=== PATIENT | female | born 1990 ===

== ENCOUNTER 2020-11-05 13:18 | Inpatient (IN) | payer OTHER ==
[~2020-11-05] VITALS: Wt 82.2 kg
[2020-11-05] MEDS ORDERED: NORVASC 5MG5 MG/TAB PO (15:51)
[2020-11-05] MEDS ORDERED: ELIQUIS 2.5 PO (15:55)
[2020-11-05] MEDS ORDERED: LIPITOR20 MG PO (15:56)
[2020-11-05] MEDS ORDERED: LASIX 20MG TABL20 MG PO (15:56)
[2020-11-05] MEDS ORDERED: PRINIVIL40 MG PO (15:58)
[2020-11-05] MEDS ORDERED: CELLCEPT 5500 MG/TAB PO (16:00)
[2020-11-05] MEDS ORDERED: PRIL40 PO (16:01)
[2020-11-05] MEDS ORDERED: BACTRIM 400 MG-1 TAB PO (16:05)
[2020-11-05] MEDS ORDERED: PREDNISONE20 MG PO (16:07)
[2020-11-05] MEDS ORDERED: FOSAMAX 35MG35 MG PO (16:09)
--- NOTE | 2020-11-05 16:40 | NUR ---
Patient to room 354 by EMS from [facility]. Patient A&Ox4. VSS. IV CDI. Patient ambulated with standby assist to the bed from the stretcher. Patient oriented patient to location, room and call light. Reports pain in legs with movement and palpation. No further needs expressed from the patient. Call light within reach
[2020-11-05 16:49] LABS: BASO % 0.1 % (0.0-2.0); EOS # 0.1 (0.0-0.7); EOS % 0.5 % (0-4.0); GRAN # 10.5 (1.4-6.5); GRAN % 72.3 % (42.2-75.2); LYMPH # 2.9 (1.2-3.4); LYMPH % 20.1 % (20.0-51.0); MEAN CELL VOLUME 83 fl (80.0-100.0); MEAN CORPUSCULAR HGB CONC 31 g/dl (33.0-37.0); MEAN PLATELET VOLUME 9.3 fl (7.4-10.4); MONO % 6.7 % (1.7-9.3); PLATELET COUNT 215 K/mm3 (130-400); RED BLOOD COUNT 3.62 M/mm3 (4.10-5.30); REDCELL DISTRIBUTION WIDTH-CV 15.9 % (11.5-14.5)
[2020-11-05 16:51] LABS: HEMATOCRIT 29.9 % (37.0-47.0); HEMOGLOBIN 9.3 g/dl (12.5-16.0); MEAN CORPUSCULAR HEMOGLOBIN 26 pg (27.0-31.0)
[2020-11-05 17:00] LABS: ALBUMIN 2.7 gm/dL (3.5-5.0); BILIRUBIN,TOTAL 0.4 mg/dL (0.0-1.0); CALCIUM 8.5 mg/dL (8.4-10.2); CREATININE, serum 1.09 (0.52-1.25); POTASSIUM 4.3 mmol/L (3.4-5.0); TOTAL PROTEIN 5.3 gm/dL (6.4-8.2)
[2020-11-05 17:01] VITALS: BP 139/84; PULSE 103; TEMP 98.5
--- NOTE | 2020-11-05 18:21 | NUR ---
Patient sitting up in bed working on eatting dinner. Reports of pain in ear after yawning and ears popping. No pain medication requested. A&Ox4. VSS. IV CDI, fluids infusing. No further needs expressed from the patient. Call light within reach
[2020-11-05 19:17] VITALS: BP 137/76; PULSE 107; TEMP 98.7
--- NOTE | 2020-11-05 19:30 | NUR ---
RECEIVED CHANGE OF SHIFT REPORT FROM DAY SHIFT NURSE.
--- NOTE | 2020-11-05 19:57 | NUR ---
PATIENT REPORTS STILL HAS LEFT EAR PAIN, LEVEL 10/10, WITH DAISHA LEG PAIN, 6/10, THAT PATIENT STATES IS "COMING BACK". DENIES NAUSEA/CHEST PAIN/SHORTNESS OF BREATH/COUGH AT THIS TIME. DENIES NUMBNESS/TINGLING TO EXTREMITIES AT THIS TIME. STARTED 24 HOUR URINE COLLECTION AT 1910, URINE COLLECTION JUGS ON ICE PER HOSP P/P. DENIES NO OTHER NEEDS AT THIS TIME.
[2020-11-05 23:37] VITALS: BP 141/71; PULSE 105; TEMP 98.5
--- NOTE | 2020-11-06 01:29 | NUR ---
SEE eMAR FOR PAIN MED GIVEN TO RECURRENT LEFT EAR PAIN, REPORTING THAT LEFT JAW AND THROAT WITH PAIN. PATIENT AGREED TO THERMAL TX FOR COMFORT WELL FOR LEFT EAR PAIN. NO OTHER NEEDS REPORTED.
[2020-11-06 03:56] VITALS: BP 135/76; PULSE 99; TEMP 98.4
[2020-11-06 06:30] LABS: ALBUMIN 2.5 gm/dL (3.5-5.0); CALCIUM 8.1 mg/dL (8.4-10.2); CREATININE, serum 0.93 (0.52-1.25); PHOSPHOROUS 3.8 mg/dL (2.5-4.5); POTASSIUM 4.5 mmol/L (3.4-5.0)
[2020-11-06 06:55] LABS: GRAN % 77.4 % (42.2-75.2); HEMATOCRIT 26.5 % (37.0-47.0); HEMOGLOBIN 8.6 g/dl (12.5-16.0); LYMPH % 15.1 % (20.0-51.0); MEAN CELL VOLUME 83 fl (80.0-100.0); MEAN CORPUSCULAR HEMOGLOBIN 27 pg (27.0-31.0); MEAN CORPUSCULAR HGB CONC 33 g/dl (33.0-37.0); MEAN PLATELET VOLUME 9.5 fl (7.4-10.4); PLATELET COUNT 207 K/mm3 (130-400); RED BLOOD COUNT 3.19 M/mm3 (4.10-5.30)
[2020-11-06 06:56] LABS: BASO % 0.1 % (0.0-2.0); EOS # 0.1 (0.0-0.7); EOS % 0.9 % (0-4.0); GRAN # 10.8 (1.4-6.5); LYMPH # 2.1 (1.2-3.4); MONO # 0.9 (0.1-0.6); MONO % 6.2 % (1.7-9.3)
--- NOTE | 2020-11-06 07:05 | NUR ---
CHANGE OF SHIFT REPORT GIVEN TO DAY SHIFT NURSEALMA RN
[2020-11-06 08:31] VITALS: BP 133/77; PULSE 103; TEMP 98.7
--- NOTE | 2020-11-06 08:34 | NUR ---
PT COMPLAINED OF EAR PAIN. THIS RN LOOKED INTO EAR WITH OTOSCOPE, EAR DRUM IS RED, INFLAMMED AND APPEARS TO HAVE FLUID BUILD UP. NO FURTHER CONCERNS.
--- NOTE | 2020-11-06 09:18 | NUR ---
Initial visit attempt; Nurses with patient, one of whom delivered Veneer Patcher's card letting Raiza know of the availability of [facility] at our [facility].
--- NOTE | 2020-11-06 09:59 | NUR ---
Follow-up visit after leaving [employer]'s card earlier. Patient stated she was so glad [employer] is available to her to pray and listen. Tax Senior [employer] assured patient we will take good care of her.
[2020-11-06 12:30] VITALS: BP 130/71; PULSE 108; TEMP 98.1
--- NOTE | 2020-11-06 13:58 | NUR ---
Primary nurse was assisted with [phone] patient care by [employer] student Ying Soler and [employer] instructor Nadine Garcia RN-.
[2020-11-06 16:24] VITALS: BP 123/75; PULSE 117; TEMP 99
--- NOTE | 2020-11-06 19:23 | NUR ---
RECEIVED CHANGE OF SHIFT REPORT FROM DAY SHIFT NURSE.
[2020-11-06 19:25] VITALS: BP 121/51; PULSE 107; TEMP 98.8
--- NOTE | 2020-11-06 19:33 | NUR ---
PT HAD EVENTFUL DAY. MRIs COMPLETED, ULTRASOUND OF POPLITEAL FOSSA COMPLETED, XRAYS OF THE RIGHT KNEE DONE WELL. 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 THE PT HAS AMBULATED VERY WELL TODAY WITH WALKER. PT 24 HOUR URINE COMPLETED AT 1910. REPORT WAS GIVEN TO JOSUÉ SPENCER. NO FURTHER CONCERNS.
[2020-11-06 20:40] LABS: MUCOUS Present /lpf; PH 5 (5-8); URINE APPEARANCE Hazy; URINE BACTERIA Rare /hpf; URINE BILIRUBIN Negative (NEGATIVE); URINE BLOOD 3+ (NEGATIVE); URINE CALCIUM OXALATE CRYSTAL Present /hpf; URINE COLOR Yellow; URINE GLUCOSE Negative (NEGATIVE); URINE KETONE Negative (NEGATIVE); URINE LEUKOCYTE ESTERASE Negative (NEGATIVE); URINE NITRATE Negative (NEGATIVE); URINE PROTEIN(semi-quant) 2+ (NEGATIVE); URINE RBC >50 /hpf; URINE UROBILINOGEN Negative (NEGATIVE)
[2020-11-06 20:50] LABS: COLLECTION METHOD CLEAN CATCH
[2020-11-06 22:08] LABS: CREATININE, serum 0.93 (0.52-1.25); URINE TOTAL VOLUME 2325 mL
[2020-11-06 23:26] VITALS: BP 122/69; PULSE 91; TEMP 98.2
[2020-11-07 03:47] VITALS: BP 125/65; PULSE 86; TEMP 98.4
[2020-11-07 06:47] LABS: BASO % 0.2 % (0.0-2.0); EOS # 0.1 (0.0-0.7); EOS % 1.2 % (0-4.0); GRAN # 8.1 (1.4-6.5); LYMPH # 2.9 (1.2-3.4); LYMPH % 24.1 % (20.0-51.0); MEAN CELL VOLUME 84 fl (80.0-100.0); MEAN CORPUSCULAR HGB CONC 31 g/dl (33.0-37.0); MEAN PLATELET VOLUME 9.7 fl (7.4-10.4); MONO # 0.7 (0.1-0.6); MONO % 6.2 % (1.7-9.3); PLATELET COUNT 206 K/mm3 (130-400); RED BLOOD COUNT 3.22 M/mm3 (4.10-5.30); REDCELL DISTRIBUTION WIDTH-CV 15.7 % (11.5-14.5)
[2020-11-07 06:59] LABS: ALBUMIN 2.4 gm/dL (3.5-5.0); CALCIUM 8.1 mg/dL (8.4-10.2); CREATININE, serum 1.01 (0.52-1.25); PHOSPHOROUS 3.9 mg/dL (2.5-4.5); POTASSIUM 4.1 mmol/L (3.4-5.0)
[2020-11-07 07:12] LABS: HEMATOCRIT 27.1 % (37.0-47.0); HEMOGLOBIN 8.5 g/dl (12.5-16.0); MEAN CORPUSCULAR HEMOGLOBIN 26 pg (27.0-31.0)
--- NOTE | 2020-11-07 07:52 | NUR ---
CHANGE OF SHIFT REPORT GIVEN TO DAY SHIFT NURSE, NATE MOSES.
[2020-11-07 08:51] VITALS: BP 133/66; PULSE 99; TEMP 97.9
--- NOTE | 2020-11-07 09:00 | NUR ---
Pt assessment completed and charted, medications administered per nov. pt A&O, SBA w/ walker in room. On room air, breathing is even and unlabored, LS cta, HRRR, murmur noted. Pt denies dizziness, N/V, chest pain, SOB. Pt noted she had some diarrhea, liquid, not observed. Pulses strong bilaterally. LAC IV w/ 1/2 NS running at 100 ml/hr. SCDs in place. No edema noted. Pt denies pain to LE at this time, "discomfort to ankles". Denied need for pain medication, received tylenol PRN w/ roads and parking lots sweeper operator around 0330. Pt requesting shower after being rounded on by hospitalist.
[2020-11-07 11:15] VITALS: BP 124/66; PULSE 88; TEMP 98
[2020-11-07] MEDS ORDERED: PRINIVIL20 MG PO (12:04)
[2020-11-07] MEDS ORDERED: NEURONTIN100 MG/CAP PO (12:05)
[2020-11-07] MEDS ORDERED: CELLCEPT 5500 MG/TAB PO (12:06)
--- NOTE | 2020-11-07 14:20 | NUR ---
Plan to return home with True SW met with patient about care plan. Patient reports that she resides on [place] and obtains medications from [facility]. Patient reports PCP is on [facility] also but does not know name. Patient reports that she has support from her [id number] who is local and also an alternate contact . Patient denies having any DME use or supports at this time. Patient reports that she does not require any hhs.Patient does not have a DPOA.Patient's will transport. Client denies having any care concerns. Offered supports. Will continue to follow for care changes.
--- NOTE | 2020-11-07 14:32 | NUR ---
DISCHARGE INSTRUCTIONS DISCUSSED AND REVIEWED W/ PT WHO VERBALIZED UNDERSTANDING. ALL QUESTIONS ANSWERED. LAC INT IV DC'D W/ CATH TIP INTACT, NO ISSUES. AWAITING FOR ARRIVAL TO ESCORT PT HOME
--- NOTE | 2020-11-07 15:41 | NUR ---
pt escorted out via w/ [place] expanded function dental assistant. arrived to ER entrance for pickup.
== END 2020-11-07 15:42 | disposition home or self-care (01) | DRG 547 ==
LOC: MEDICAL 13:18
PROVIDERS: ADMIT Internal Medicine Nephrology
DX: M32.14 Glomerular disease in systemic lupus erythematosus (principal); G62.9 Polyneuropathy, unspecified; N18.1 Chronic kidney disease, stage 1; M66.0 Rupture of popliteal cyst; I12.9 Hypertensive chronic kidney disease with stage 1 through stage 4 chronic kidney disease, or unspecified chronic kidney disease; D72.829 Elevated white blood cell count, unspecified; E66.9 Obesity, unspecified; E78.5 Hyperlipidemia, unspecified; Z79.01 Long term (current) use of anticoagulants; Z79.52 Long term (current) use of systemic steroids
CPT/HCPCS: J7512; J7517